=== PATIENT | female | born 1945 | race Caucasian/White ===

== ENCOUNTER → 2018-08-17 09:57 | Outpatient (CLI) | payer MEDICARE, OTHER, SELFPAY ==
--- NOTE | 2018-08-17 | DI.CT.S_ITS ---
PROCEDURE: CT CHEST W CON INDICATIONS: Dyspnea, unspecified TECHNIQUE: After the administration of intravenous contrast, 5 mm thick sections acquired from the pulmonary apices to the posterior costophrenic angles. 7 mm thick coronal and sagittal MIP reformats were acquired. For radiation dose reduction, the following was used: automated exposure control, adjustment of mA and/or kV according to patient size. COMPARISON: [facility], CR, XR CHEST 2 VIEWS, 08/12/2018, 17:07. FINDINGS: Image quality: Excellent. Lungs and pleura: A large medial right lower lung mass is not present and the area of prior plain film concern represents dilatation of the pulmonary vein in that area. This is associated with mild generalized pulmonary edema and bilateral small pleural effusions that are water density and are slightly larger on the right than the left. There is a finding of several areas of patchy atelectasis, no definite pneumonia, and at the right lung base there is a lateral vaguely marginated 6 mm focus of subtle solid radiodensity. This is seen centered on series 3 image 34. No pneumothorax. Central and peripheral airways are patent and normal in caliber. Mediastinum: Left atrium size is mildly enlarged. No pericardial effusion. No mediastinal or hilar adenopathy by size criteria. Thoracic aorta and central pulmonary arteries are normal in size. Esophagus is normal in caliber. No hiatal hernia. Bones and chest wall: No suspicious bony lesions. No vertebral body compression fractures. No axillary or supraclavicular adenopathy by size criteria. Thyroid gland contains a large hypoenhancing mass measuring up to 2.7 cm oblique AP and 2 cm oblique transverse. Abdomen: Visualized upper abdominal solid organs appear normal. Upper abdominal bowel loops are normal in caliber. IMPRESSION: 1. The masslike structure seen by plain film imaging 08/12/18 represents dilatation of the inferior pulmonary vein on the right, and the left atrium is relatively large. Echocardiography may be warranted for more accurate assessment. 2. Generalized mild pulmonary edema pattern. Small bilateral pleural effusions appear simple in character, water in density, and do not appear loculated. These are slightly greater on the right than the left. 3. A 6 mm solid focus of radiodensity is seen at the lateral right lower lung, which may represent focal pulmonary consolidation developing in this area. A sub-solid nodule may explain that appearance. Followup noncontrast CT scanning in 6 months is recommended to ensure resolution of that finding. Dictated by: Taye Overton M.D. on 08/17/2018 at 10:54 Approved by: Taye Overton M.D. on 08/17/2018 at 11:01
== END ==
PROVIDERS: PCP Naturopath; Visit Provider Nurse Practitioner Family
DX: R06.00 Dyspnea, unspecified (principal); I28.8 Other diseases of pulmonary vessels; J81.1 Chronic pulmonary edema; J90 Pleural effusion, not elsewhere classified; E07.9 Disorder of thyroid, unspecified
CPT/HCPCS: 71260

== ENCOUNTER → 2018-09-26 08:24 | Outpatient (CLI) | payer MEDICARE, OTHER, SELFPAY ==
[2018-09-26 09:40] LABS: BUN Creatinine Ratio 18.9 (6-22); Blood Urea Nitrogen 17 mg/dL (7-17); Calcium 9.8 mg/dL (8.4-10.2); Carbon Dioxide 25 mmol/L (22-32); Chloride 102 mmol/L (98-107); Estimated Glomerular Filt Rate > 60.0 mL/min (>60); Glucose 99 mg/dL (80-110); HEMOLYSIS < 15 (0-50); Potassium 4.5 mmol/L (3.4-5.1); Sodium 137 mmol/L (137-145)
== END ==
PROVIDERS: Family Provider Nurse Practitioner Family; PCP Naturopath; Visit Provider Internal Medicine Cardiovascular Disease
DX: I50.1 Left ventricular failure, unspecified (principal)
CPT/HCPCS: 36415; 80048

== ENCOUNTER → 2018-10-14 08:13 | Outpatient (CLI) | payer MEDICARE, OTHER, SELFPAY ==
[2018-10-14 08:54] LABS: Specimen Label KIT TEST VIBRANT
== END ==
PROVIDERS: Family Provider Nurse Practitioner Family; PCP Naturopath
DX: I50.9 Heart failure, unspecified (principal); E78.5 Hyperlipidemia, unspecified
CPT/HCPCS: 36415; 99001

== ENCOUNTER → 2019-04-26 14:52 | Outpatient (CLI) | payer MEDICARE, OTHER, SELFPAY ==
--- NOTE | 2019-05-27 10:00 | DI.ECHO.S_ITS ---
Echocardiogram Report + + :Name: DARY WILLOUGHBY Study Date: 04/26/2019 Height: 66 in : :[facility] Weight: 144 lb : : Gender: Female BSA: 1.7 m2 : :: 1945 Age: 74 yrs BP: 132/75 mmHg: :Reason For Study: DILATED CM : : Performed By: Robert Weber : :Referring: JASMIN SERRATO : + + Interpretation Summary The left ventricle is moderately dilated and systolic function is moderate to severely reduced with the ejection fraction visually estimated to be 30-35%. There is a mild dyssynchronous contraction pattern, consistent with a conduction abnormality, and moderate to severe global hypokinesis that appears worse in the septum but is unchanged compared to the previous study. Diastolic parameters suggest a pseudonormalization pattern, consistent with probable elevated filling pressures but likely lower compared to the previous study. Otherwise, there has been no significant change from the previous exam. The right ventricle is normal in size and function and appears unchanged compared to the previous study. The right ventricular systolic pressure is estimated to be at least 31 mmHg based on an estimated right atrial pressure of 3 mm Hg, and is likely slightly lower compared to the previous study. The left atrium is severely dilated and is mildly larger compared to the previous study. The mitral valve leaflets are slightly calcified but otherwise appears normal with moderate to severe mitral regurgitation that appears slightly improved compared to the previous study. There is no other significant valvular heart disease. Procedure: A two-dimensional transthoracic echocardiogram with color flow and Doppler was performed. The study quality was technically good. Comparison is made with the echocardiogram of 3/15/19. The patient was in normal sinus rhythm during the exam. Left Ventricle: There is normal left ventricular wall thickness. The left ventricle is moderately dilated. Left ventricular systolic function is moderate to severely reduced. The ejection fraction is estimated to be 30-35%. There is a mild dyssynchronous contraction pattern, consistent with a conduction abnormality. There is moderate to severe global hypokinesis of the left ventricle. This appears worse in the septum. This is unchanged compared to the previous study. Diastolic parameters suggest a pseudonormalization pattern, consistent with probable elevated filling pressures. This is likely lower compared to the previous study. Right Ventricle: The right ventricle is normal in size and function. This is unchanged compared to the previous study. Atria: The left atrium is severely dilated. This is mildly larger compared to the previous study. Right atrial size is normal. The interatrial septum is intact with no evidence for an atrial septal defect. Mitral Valve: The mitral valve leaflets are slightly calcified. There is moderate to severe mitral regurgitation. This is slightly improved compared to the previous study. Aortic Valve: The aortic valve is trileaflet. The aortic valve opens well. No aortic regurgitation is present. Tricuspid Valve: The tricuspid valve is normal in structure and function. There is trace tricuspid regurgitation. The right ventricular systolic pressure is estimated to be at least 31 mmHg based on an estimated right atrial pressure of 3 mm Hg. This is likely slightly lower compared to the previous study. Pulmonic Valve: The pulmonic valve is normal in structure and function. There is trace pulmonic regurgitation. There is no other significant valvular heart disease. Great Vessels: The aortic root is normal size. The dimensions of the ascending aorta are normal. The pulmonary artery is normal size. The IVC is of normal diameter and collapses greater than 50% with a sniff. This suggests a low right atrial pressure of 3 mm Hg. Pericardium/ Pleura There is no pericardial effusion. There is no pleural effusion. MMode/2D Measurements & Calculations LVIDd: 6.4 cm LVOT diam: 2.0 cm LVIDs: 5.1 cm Ao root diam: 2.7 cm FS: 20.1 % Aortic Jxn: 2.4 cm EPSS: 2.0 cm asc Aorta Diam: 3.2 cm IVSd: 1.0 cm Ao Arch Diam (Prox Trans): 2.5 cm LVPWd: 0.95 cm LV pineda. diameter/BSA (cm/m^2): 3.7 LV sys. diameter/BSA (cm/m^2): 3.0 LA dimension: 4.3 cm RA long axis: 4.4 cm LA A2 area: 30.5 cm2 RA area: 15.2 cm2 LA A4 area: 27.0 cm2 RA vol: 45.1 ml LA length (vol): 5.8 cm RA : 25.9 ml/m2 LA vol: 119.8 ml IVC diam: 0.91 cm LA vol index: 68.9 ml/m2 TAPSE: 2.0 cm Doppler Measurements & Calculations Ao V2 max: 135.1 cm/sec LVOT Max Felice: 102.1 cm/sec Ao V2 mean: 96.1 cm/sec LV V1 max P.2 mmHg Ao max P.3 mmHg LV V1 VTI: 20.6 cm Ao mean P.0 mmHg GEOFF(I,D): 2.4 cm2 Ao V2 VTI: 25.6 cm GEOFF(V,D): 2.3 cm2 sev ratio: 0.81 GEOFF indexed to BSA (cm^2/m^2): 1.4 MV E max felice: 81.3 cm/sec TR max felice: 264.3 cm/sec MV A max felice: 110.3 cm/sec TR max P.9 mmHg MV E/A: 0.74 PA V2 max: 84.8 cm/sec Med Peak E' Felice: 4.0 cm/sec PA V2 mean: 60.8 cm/sec E/E' med: 20.2 PA mean P.6 mmHg Lat Peak E' Felice: 6.7 cm/sec PA pr(Accel): 44.1 mmHg E/E' lat: 12.1 PA Accel Time: 0.07 sec E/e' average: 16.1 MV dec time: 0.15 sec SV(LVOT): 62.7 ml _ Reading Physician:SERA
== END ==
PROVIDERS: Family Provider Nurse Practitioner Family; PCP Naturopath; Visit Provider Internal Medicine Cardiovascular Disease
DX: I34.0 Nonrheumatic mitral (valve) insufficiency (principal); I42.0 Dilated cardiomyopathy
CPT/HCPCS: 93306

== ENCOUNTER → 2019-09-25 13:11 | Outpatient (CLI) | payer MEDICARE, OTHER, SELFPAY | PROVIDERS: Family Provider Nurse Practitioner Family; PCP Naturopath; Referring Provider Internal Medicine Cardiovascular Disease; Visit Provider Internal Medicine Cardiovascular Disease | DX: E78.5 Hyperlipidemia, unspecified (principal); I50.9 Heart failure, unspecified | CPT/HCPCS: 36415; 99001 ==

== ENCOUNTER → 2020-04-17 10:58 | Outpatient (CLI) | payer MEDICARE, OTHER, SELFPAY | PROVIDERS: Family Provider Nurse Practitioner Family; PCP Naturopath; Referring Provider Internal Medicine Cardiovascular Disease; Visit Provider Internal Medicine Cardiovascular Disease | DX: I42.0 Dilated cardiomyopathy (principal) | CPT/HCPCS: 36415; 99001 ==

== ENCOUNTER → 2020-12-24 08:26 | Outpatient (CLI) | payer MEDICARE, OTHER, SELFPAY ==
[2020-12-24 09:40] LABS: Specimen Label KIT
== END ==
PROVIDERS: Family Provider Nurse Practitioner Family; PCP Naturopath; Referring Provider Internal Medicine Cardiovascular Disease; Visit Provider Internal Medicine Cardiovascular Disease
DX: I42.0 Dilated cardiomyopathy (principal); E55.9 Vitamin D deficiency, unspecified; E78.5 Hyperlipidemia, unspecified; R53.82 Chronic fatigue, unspecified
CPT/HCPCS: 36415; 99001

== ENCOUNTER → 2021-01-14 10:42 | Outpatient (CLI) | payer MEDICARE, OTHER, SELFPAY ==
[2021-01-14 11:28] LABS: Add Manual Diff / Slide Review NO; Basophils Absolute Auto 100 /uL (0-100); Eosinophils Absolute Auto 200 /uL (0-450); Eosinophils Percent Auto 3.3 % (2-4); Hematocrit 39.6 % (36-46); Hemoglobin 13.2 g/dL (12.0-16.0); Lymphocytes Absolute Auto 1400 /uL (1100-4500); Lymphocytes Percent Auto 21.5 % (25-40); Mean Corpuscular HGB Conc 33.2 % (30-36); Mean Corpuscular Hemoglobin 31.1 PG (26-34); Mean Corpuscular Volume 93.7 fL (80-100); Monocytes Absolute Auto 700 /uL (0-900); Monocytes Percent Auto 11.3 % (3-14); Neutrophils Absolute Auto 4100 /uL (1500-7000); Neutrophils Percent Auto 62.9 % (50-75); Platelet Count 269 X10^3/uL (150-400); Red Blood Cell Count 4.23 X10^6/uL (4.0-5.2); White Blood Cell Count 6.5 X10^3/uL (4.5-11.0)
== END ==
PROVIDERS: Family Provider Nurse Practitioner Family; PCP Naturopath; Referring Provider Internal Medicine Cardiovascular Disease; Visit Provider Internal Medicine Cardiovascular Disease
DX: I42.0 Dilated cardiomyopathy (principal)
CPT/HCPCS: 36415; 85025

== ENCOUNTER → 2021-12-15 07:51 | Outpatient (CLI) | payer MEDICARE, OTHER, SELFPAY ==
--- NOTE | 2021-12-15 | DI.ECHO.S_ITS ---
[facility]---------+ [facility] +---------+ : : [address] : : : : [id number] : : : : Phone: [phone]+ Echocardiogram Report + + :Name: DARY WILLOUGHBY Study Date: 12/15/2021 Height: 65.5 in: :[facility] ReadingLocation: Weight: 136 lb : : Gender: Female BSA: 1.7 m2 : :: 1945 Age: 76 yrs BP: 125/86 mmHg: :Reason For Study: DILATED CARDIOMYOPATHY : :Ordering Physician: AMA, : :JASMIN Performed By: Maria Diez : :Referring: JASMIN SERRATO : + + Interpretation Summary The ejection fraction is estimated to be 15-20%. There is severe global hypokinesis of the left ventricle. There is severe mitral regurgitation. There is mild tricuspid regurgitation. The right ventricular systolic pressure is estimated to be at least 37 mmHg based on an estimated right atrial pressure of 3 mm Hg. Procedure: A two-dimensional transthoracic echocardiogram with color flow and Doppler was performed. The study quality was technically adequate. Comparison is made with the echocardiogram of 01/21/2021. The patient was in sinus rhythm with heart rates between 64-80 bpm during the exam. Left Ventricle: The left ventricle is severely dilated. The estimated left ventricular end diastolic volume is 186 ml. There is normal left ventricular wall thickness. The ejection fraction is estimated to be 15-20%. There is severe global hypokinesis of the left ventricle. Right Ventricle: The right ventricle is normal in size and function. Atria: The left atrium is severely dilated. Right atrial size is normal. There is no Doppler evidence for an interatrial shunt. Mitral Valve: The mitral valve leaflets are slightly calcified. There is severe mitral regurgitation. Aortic Valve: The aortic valve is trileaflet. The aortic valve opens well. There is no aortic valve stenosis. No aortic regurgitation is present. Tricuspid Valve: The tricuspid valve is normal in structure and function. There is mild tricuspid regurgitation. The right ventricular systolic pressure is estimated to be at least 37 mmHg based on an estimated right atrial pressure of 3 mm Hg. Pulmonic Valve: The pulmonic valve is not well seen, but is grossly normal. There is trace pulmonic regurgitation. Great Vessels: The aortic root is normal size. The dimensions of the ascending aorta are normal. The IVC is of normal diameter and collapses greater than 50% with a sniff. This suggests a low right atrial pressure of 3 mm Hg. Pericardium/ Pleura There is no pericardial effusion. There is no pleural effusion. MMode/2D Measurements & Calculations LVIDd: 7.1 cm LVOT diam: 1.8 cm LVIDs: 6.3 cm Ao root diam: 2.7 cm FS: 11.2 % asc Aorta Diam: 3.1 cm EPSS: 2.3 cm Ao Arch Diam (Prox Trans): 2.3 cm IVSd: 0.84 cm LVPWd: 0.84 cm LV pineda. diameter/BSA (cm/m^2): 4.2 LV sys. diameter/BSA (cm/m^2): 3.7 LA A2 area: 33.5 cm2 RA long axis: 4.8 cm LA A4 area: 30.4 cm2 RA area: 16.0 cm2 LA length (vol): 7.0 cm RA vol: 45.3 ml LA vol: 123.8 ml RA : 26.8 ml/m2 LA vol index: 73.4 ml/m2 IVC diam: 1.7 cm RVD1 (basal): 3.0 cm RVD2 (mid): 2.7 cm TAPSE: 2.7 cm Doppler Measurements & Calculations Ao V2 max: 133.4 cm/sec LVOT Max Felice: 89.1 cm/sec Ao V2 mean: 92.7 cm/sec LV V1 max P.2 mmHg Ao max P.1 mmHg LV V1 VTI: 15.4 cm Ao mean P.9 mmHg GEOFF(I,D): 1.4 cm2 Ao V2 VTI: 26.8 cm GEOFF(V,D): 1.7 cm2 sev ratio: 0.57 GEOFF indexed to BSA (cm^2/m^2): 0.85 MV E max felice: 133.7 cm/sec TR max felice: 291.1 cm/sec MV A max felice: 121.6 cm/sec TR max P.0 mmHg MV E/A: 1.1 PA V2 max: 104.5 cm/sec Med Peak E' Felice: 5.9 cm/sec PA V2 mean: 74.7 cm/sec E/E' med: 22.8 PA mean P.4 mmHg Lat Peak E' Felice: 9.4 cm/sec PA pr(Accel): 39.6 mmHg E/E' lat: 14.2 E/e' average: 18.5 MV dec time: 0.17 sec MR ERO: 0.33 cm2 MR PISA: 4.5 cm2 SV(LVOT): 38.5 ml MR flow rate: 173.5 cm3/sec MR PISA radius: 0.85 cm Reading Physician:[id number] PM
== END ==
PROVIDERS: Family Provider Nurse Practitioner Family; PCP Nurse Practitioner Family; Referring Provider Internal Medicine Cardiovascular Disease; Visit Provider Internal Medicine Cardiovascular Disease
DX: I42.0 Dilated cardiomyopathy (principal); I08.1 Rheumatic disorders of both mitral and tricuspid valves
CPT/HCPCS: 93306

== ENCOUNTER 2022-05-21 07:28 | Emergency (ER) | payer MEDICARE, OTHER, SELFPAY ==
[2022-05-21] VITALS (14 sets, daily range): BP systolic 107–126; BP diastolic 72–76; PULSE 79–102; RESP 20–31; TEMP 36.9; O2SAT 90–96
--- NOTE | 2022-05-21 07:48 | DI.RAD.S_ITS ---
PROCEDURE: XR CHEST 1V INDICATIONS: Short of breath TECHNIQUE: One view of the chest was acquired. COMPARISON: [facility], CT, CT CHEST W CON, 08/17/2018, 10:05. [facility], CR, XR CHEST 2 VIEWS, 08/12/2018, 17:07. 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 Lungs and pleura: Small pleural effusions are seen. On this semiupright study, no large pneumothorax is seen. Mild interstitial prominence can be seen. Mediastinum: Mediastinal contours appear normal. Heart size is moderately enlarged. Bones and chest wall: No suspicious bony lesions. Age-appropriate bony degenerative changes are seen. There is a remote appearing fracture of the left humeral neck. Overlying soft tissues appear unremarkable. IMPRESSION: Cardiomegaly with interstitial prominence and pleural effusions. CHF is suspected. Postoperative and degenerative changes are seen. Dictated by: Jaya Trivedi M.D. on 05/21/2022 at 7:52 Approved by: Jaya Trivedi M.D. on 05/21/2022 at 7:53
--- NOTE | 2022-05-21 08:09 | ED_ITS ---
HPI - General Adult General Chief complaint: Shortness of Breath/Dyspnea Stated complaint: short of breath Time Seen by Provider: 05/21/22 07:47 Source: patient Mode of arrival: Ambulatory Limitations: no limitations History of Present Illness HPI narrative: Patient is a 77-year-old female. Takes no medications except for an occasional Claritin and some supplements. States she has been diagnosed with heart failure in the past after having a ?crisis ?but she states that past and she is not currently on any medications. She does see a tube pusher but this individual is located in [place]. She states that she started to have shortness of breath several months ago. It seemed to worsen approximately 3 weeks ago. She also states she is having problems sleeping at night. It is not because that she is short of breath just that she wakes up and can not go back to sleep. She states she has talking with someone about this. She states that her breathing today is not particularly worse than what it was a couple weeks ago which just that last evening she woke up and could not go back to sleep and so she sat up all night. She is not having any chest pain. No abdominal pain. No lower extremity swelli ng. She states she does not feel particularly anxious but just ?fatigued? because she is not had any sleep. Related Data Previous Rx's Medication Instructions Recorded furosemide 20 mg tablet (Lasix) 20 mg PO DAILY #30 tabs 05/21/22 Allergies Allergy/AdvReac Type Severity Reaction Status Date / Time No Known Drug Allergies Allergy Verified 05/21/22 08:35 Review of Systems Constitutional Constitutional: Reports system reviewed and no additional complaints, except as documented ENT Ears, Nose, Mouth, and Throat: Reports system reviewed and no additional complai nts, except as documented Cardiovascular Cardiovascular: Reports system reviewed and no additional complaints, except as documented Respiratory Respiratory: Reports system reviewed and no additional complaints, except as documented Gastrointestinal Gastrointestinal: Reports system reviewed and no additional complaints, except as documented Integumentary/Breasts Skin/Breast: Reports system reviewed and no additional complaints, except as documented Neurologic Neurologic: Reports system reviewed and no additional complaints, except as documented Hematologic/Lymphatic On Anticoagulants: No Patient History Medical History Congestive heart failure Social History lives independently: Yes Smoking Status: Never smoker Exam Initial Vital Signs Initial Vital Signs: Vital Signs Temperature 98.5 F 05/21/22 08:16 Pulse Rate 102 H 05/21/22 08:16 Respiratory Rate 22 05/21/22 08:16 Blood Pressure 126/76 05/21/22 08:16 Pulse Oximetry 96 05/21/22 08:16 Oxygen Delivery Method 05/21/22 08:16 Const General: cooperative and No ill appearing [facility] Head: normal to inspection and normocephalic Resp Effort & Inspection: no respiratory distress and tachypneic Auscultation: clear to auscultation bilaterally Cardio Rate: regular rate Rhythm: regular rhythm GI Inspection: normal to inspection Skin General: no rashes or lesions noted Neuro General: patient alert, patient awake and moves all extremities Extrem General: capillary refill normal Psych Appearance: grossly normal and well kempt Course Orders Ordered: ED Orders 05/21/22 07:48 XR chest 1V Stat EKG-12 Lead Stat 05/21/22 08:05 Complete Blood Count AUTO DIFF Stat Comprehensive Metabolic Panel Stat Lipase Stat NT-proBNP (BNP-Adult 18+) Stat Partial Thromboplastin Time Stat Prothrombin Time INR Stat Troponin & CK Cardiac Panel Stat 05/21/22 09:11 CT angio chest PE protocol Stat 05/21/22 10:30 MG [Magnesium] Stat Troponin & CK Cardiac Panel Stat 05/21/22 12:07 EC echo doppler complete Stat Discontinued Medications Aspirin (Aspirin 81 Mg Chew Tab) 324 mg PO NOW ONE Stop: 05/21/22 09:11 Last Admin: 05/21/22 09:27 Dose: 324 mg Documented By: DENA Furosemide (Furosemide 40 Mg/4 Ml Vial) 40 mg IV NOW ONE Stop: 05/21/22 09:11 Last Admin: 05/21/22 09:27 Dose: 40 mg Documented By: BT Lorazepam (Lorazepam 2 Mg/Ml Inj) 0.5 mg IV NOW ONE Stop: 05/21/22 08:10 Last Admin: 05/21/22 08:55 Dose: Not Given Documented By: BT Vital Signs Vital signs: Vital Signs - 8 hr 05/21/22 08:16 05/21/22 09:15 05/21/22 09:39 Temperature 98.5 F Pulse Rate 102 H 95 H 97 H Respiratory Rate 22 31 H Blood Pressure 126/76 Pulse Oximetry 96 90 L 94 Oxygen Delivery Method Room Air 05/21/22 10:03 05/21/22 10:30 05/21/22 11:00 Temperature Pulse Rate 99 H 96 H 96 H Respiratory Rate 20 22 Blood Pressure Pulse Oximetry 90 L 91 94 Oxygen Delivery Method 05/21/22 11:33 05/21/22 12:00 05/21/22 12:30 Temperature Pulse Rate 97 H 86 87 Respiratory Rate 24 22 24 Blood Pressure Pulse Oximetry 93 95 Oxygen Delivery Method 05/21/22 13:00 05/21/22 13:30 05/21/22 13:47 Temperature Pulse Rate 91 H 91 H Respiratory Rate 20 20 Blood Pressure 113/75 Pulse Oximetry 94 Oxygen Delivery Method 05/21/22 13:47 05/21/22 14:00 05/21/22 14:00 Temperature Pulse Rate 86 79 Respiratory Rate 22 24 Blood Pressure 107/72 Pulse Oximetry 95 95 Oxygen Delivery Method Medical Decision Making Lab Data Lab results reviewed: Yes I reviewed the patient's lab results. Result diagrams: 05/21/22 08:05 05/21/22 08:05 Labs: Lab Results 05/21/22 05/21/22 05/21/22 Range/Units 08:05 08:05 08:05 WBC 10.2 (4.5-11.0) X10^3/uL RBC 4.15 (4.0-5.2) X10^6/uL Hgb 12.7 (12.0-16.0) g/dL Hct 37.5 (36-46) % MCV 90.5 (80-100) fL MCH 30.6 (26-34) PG MCHC 33.8 (30-36) % RDW 15.0 H (11.6-14.8) % Plt Count 326 (150-400) X10^3/uL Neut % (Auto) 80.4 H (50-75) % Lymph % (Auto) 8.4 L (25-40) % Baldwin % (Auto) 9.1 (3-14) % Eos % (Auto) 1.2 L (2-4) % Baso % (Auto) 0.9 (0-2) % Neut # (Auto) 8200 H (3866-3419) /uL Lymph # (Auto) 900 L (6390-6500) /uL Baldwin # (Auto) 900 (0-900) /uL Eos # (Auto) 100 (0-450) /uL Baso # (Auto) 100 (0-100) /uL PT 13.7 H (10.1-12.7) SECONDS INR 1.2 (0.9-1.3) APTT 30 (26-36) SECONDS Sodium 138 (137-145) mmol/L Potassium 4.2 (3.4-5.1) mmol/L Chloride 106 (98-107) mmol/L Carbon Dioxide 20 L (22-32) mmol/L BUN 23 H (7-17) mg/dL Creatinine 0.88 (0.52-1.04) mg/dL Estimated GFR > 60 (>60) mL/min BUN/Creatinine Ratio 26.1 H (6-22) Glucose 146 H (80-110) mg/dL Calcium 9.5 (8.4-10.2) mg/dL Magnesium (1.6-2.3) mg/dL Total Bilirubin 0.8 (0.2-1.3) mg/dL AST 30 (14-36) IU/L ALT 43 H (<35) IU/L Alkaline Phosphatase 69 (38-126) U/L Total Creatine Kinase 108 (30-135) U/L CK-MB (CK-2) 1.89 (<2.37) ng/mL CK-MB (CK-2) Rel Index 1.8 (1.5-5.0) % Troponin I 0.038 H (0.01-0.034) ng/mL NT-Pro-B Natriuret Pep 4880 H (<450) pg/mL Total Protein 7.3 (6.3-8.2) g/dL Albumin 4.3 (3.5-5.0) g/dL Globulin 3.0 (1.7-4.1) g/dL Albumin/Globulin Ratio 1.4 (1.0-2.8) Lipase 63 (23-300) U/L 05/21/22 05/21/22 Range/Units 10:30 10:30 WBC (4.5-11.0) X10^3/uL RBC (4.0-5.2) X10^6/uL Hgb (12.0-16.0) g/dL Hct (36-46) % MCV (80-100) fL MCH (26-34) PG MCHC (30-36) % RDW (11.6-14.8) % Plt Count (150-400) X10^3/uL Neut % (Auto) (50-75) % Lymph % (Auto) (25-40) % Baldwin % (Auto) (3-14) % Eos % (Auto) (2-4) % Baso % (Auto) (0-2) % Neut # (Auto) (0398-6220) /uL Lymph # (Auto) (6284-7173) /uL Baldwin # (Auto) (0-900) /uL Eos # (Auto) (0-450) /uL Baso # (Auto) (0-100) /uL PT (10.1-12.7) SECONDS INR (0.9-1.3) APTT (26-36) SECONDS Sodium (137-145) mmol/L Potassium (3.4-5.1) mmol/L Chloride (98-107) mmol/L Carbon Dioxide (22-32) mmol/L BUN (7-17) mg/dL Creatinine (0.52-1.04) mg/dL Estimated GFR (>60) mL/min BUN/Creatinine Ratio (6-22) Glucose (80-110) mg/dL Calcium (8.4-10.2) mg/dL Magnesium 2.1 (1.6-2.3) mg/dL Total Bilirubin (0.2-1.3) mg/dL AST (14-36) IU/L ALT (<35) IU/L Alkaline Phosphatase (38-126) U/L Total Creatine Kinase 107 (30-135) U/L CK-MB (CK-2) 1.93 (<2.37) ng/mL CK-MB (CK-2) Rel Index 1.8 (1.5-5.0) % Troponin I 0.042 H (0.01-0.034) ng/mL NT-Pro-B Natriuret Pep (<450) pg/mL Total Protein (6.3-8.2) g/dL Albumin (3.5-5.0) g/dL Globulin (1.7-4.1) g/dL Albumin/Globulin Ratio (1.0-2.8) Lipase (23-300) U/L Imaging Data Chest x-ray: Radiologist's Impression: [address] [address] XRay Report Signed Patient: Dary Willoughby MR#: [id number] : 1945 Acct:[id number] Age/Sex: 77 / F Date of Service: 05/21/22 Loc: ED Accession Number: [id number] ?? Procedure: XR chest 1V Ordering Provider: Dandre Buchanan D.O. PROCEDURE:? XR CHEST 1V ? INDICATIONS:? Short of breath ? TECHNIQUE:? One view of the chest was acquired.? ? COMPARISON:? [facility], CT, CT CHEST W CON, 08/17/2018, 10:05.? [facility], CR, XR CHEST 2 VIEWS, 08/12/2018, 17:07. ? FINDINGS:? ? Surgical changes and devices:? Partial mastectomy change is seen. ? Lungs and pleura:? Small pleural effusions are seen.? On this semiupright study, no large pneumothorax is seen.? Mild interstitial prominence can be seen. ? Mediastinum:? Mediastinal contours appear normal.? Heart size is moderately enlarged.? ? Bones and chest wall:? No suspicious bony lesions.? Age-appropriate bony degenerative changes are seen.? There is a remote appearing fracture of the left humeral neck.? Overlying soft tissues appear unremarkable.? ? ? IMPRESSION:? Cardiomegaly with interstitial prominence and pleural effusions.? CHF is suspected. ? Postoperative and degenerative changes are seen.? ? ? Dictated by: Jaya Trivedi M.D. on 05/21/2022 at 7:52 ? ? Approved by: Jaya Trivedi M.D. on 05/21/2022 at 7:53 CT scan - chest: Radiologist's Impression: [address] [address] [address] Scan Report Signed Patient: Dary Willoughby MR#: [id number] : 1945 Acct:[id number] Age/Sex: 77 / F Date of Service: 05/21/22 Loc: ED Accession Number: [id number] ?? Procedure: CT angio chest PE protocol Ordering Provider: Dandre Buchanan D.O. PROCEDURE:? CT ANGIO CHEST PE PROTOCOL ? INDICATIONS:? Chest pain, shortness of breath, tachycardia ? TECHNIQUE:? After the administration of intravenous contrast, 2 mm thick sections acquired from the pulmonary apices to the posterior costophrenic angles.? 3-dimensional maximum intensity projection (MIP) coronal and sagittal reformats were then acquired through the thorax.? For radiation dose reduction, the following was used:? automated exposure control, adjustment of mA and/or kV according to patient size.? ? COMPARISON:? [facility], CT, CT CHEST W CON, 08/17/2018, 10:05.? [facility], CR, XR CHEST 1V, 05/21/2022, 7:56. ? FINDINGS:? Image quality:? Excellent.? ? Pulmonary arteries:? Pulmonary arteries are normal in size, and demonstrate no intraluminal filling defects to suggest central pulmonary embolism.? ? Lungs and pleura:? Small bilateral pleural effusions are seen, right larger than left.? Overlying dependent atelectasis is seen.? Mild ground-glass opacity can be seen.? No focal infiltrates are seen.? No pneumothorax is seen.? ? Mediastinum:? Heart size is moderately enlarged, without pericardial effusion.? No mediastinal or hilar adenopathy.? Thoracic aorta is normal in caliber and enhancement.? Esophagus is normal in caliber, without hiatal hernia.? ? Bones and chest wall:? No suspicious bony lesions.? Ribs and thoracic spine appear intact throughout.? Age-appropriate bony degenerative changes are seen.? Accentuated thoracic kyphosis is seen. ? Thyroid gland demonstrates a 2.2 cm lesion on the left posteriorly, as before.? No axillary or supraclavicular adenopathy.? Right partial mastectomy with right breast clips can be seen. ? Abdomen:? Visualized upper abdominal solid organs appear normal in the early arterial phase of enhancement.? IMPRESSION:? Negative for pulmonary embolism. ? Small bilateral pleural effusions are seen, right larger than left.? Associated overlying atelectasis can be seen. ? Cardiomegaly and interstitial prominence can be seen.? Please consider CHF. ? ? Incidental note is made of: Stable left thyroid lesion ? Dictated by: Jaya Trivedi M.D. on 05/21/2022 at 9:00 ? ? Approved by: Jaya Trivedi M.D. on 05/21/2022 at 9:02?? echo: Radiologist's Impression: Close Echocardiogram Ultrasound (Signed) Freda Hinkle - 05/21/22 Launch?Image [address] [address] Echocardiography Report Signed Patient: Dary Willoughby MR#: [id number] : 1945 Acct:[id number] Age/Sex: 77 / F Date of Service: 05/21/22 Loc: ED Accession Number: [id number] ?? Procedure: EC echo doppler complete Ordering Provider: Dandre Buchanan D.O. ? [facility]? +---------+ : ? :? [address] ? : ? : : ? :? [place], [place] ? : ? : : ? :? [address] ? : ? : : ? : ? Phone: [phone] : ? : [phone]? [phone]? +---------+ ? Echocardiogram Report + + :Name: DARY WILLOUGHBY? Study Date: 05/21/2022 ? Height: 65.5 in: :[facility] ? ? ReadingLocation: ? Weight: 136 lb : : ? Gender: Female ? BSA: 1.7 m2? ? : :: 1945? Age: 77 yrs? BP: 126/76 mmHg: :Reason For Study: CONGESTIVE HEART FAILURE ? : :Ordering Physician: SHANNON,? : :DANDRE? Performed By: Maria Diez? : :Referring: DANDRE BUCHANAN ? : + + Interpretation Summary 1) Severely dilated left ventricle with severely reduced systolic function (EF 15-20%). 2) Normal left ventricular size and function. 3) There is severe mitral regurgitation. 4) The right ventricular systolic pressure is estimated to be at least 51 mmHg based on an estimated right atrial pressure of 3 mm Hg. 5) There is a trivial pericardial effusion noted. 6) There is a small left-sided pleural effusion. 7) Compared to the Echo done 12/15/2021, systolic pulmonary artery pressure is higher on this study and small left sided pleural effusion is also present on ths study. ? Procedure: ? A two-dimensional transthoracic echocardiogram with color flow and Doppler was performed. The study quality was technically good. Comparison is made with the echocardiogram of 12/15/2021. The patient was in sinus rhythm with heart rates between 85-95 bpm during the exam. Left Ventricle: ? The left ventricle is severely dilated. The estimated left ventricular end diastolic volume is 200 ml. Trabeculae near apex are visualized. The ejection fraction is estimated to be 15-20%. There is severe global hypokinesis of the left ventricle. Right Ventricle: ? The right ventricle is normal in size and function. Atria: ? The left atrium is severely dilated. The right atrium is mildly dilated. There is no Doppler evidence for an interatrial shunt. Mitral Valve: ? The mitral valve leaflets are slightly calcified. The mitral valve leaflets are tented. There is severe mitral regurgitation. Aortic Valve: ? The aortic valve is trileaflet. The aortic valve opens well. There is no aortic valve stenosis. There is trace aortic regurgitation. Tricuspid Valve: ? The tricuspid valve leaflets are thin and pliable. There is mild tricuspid regurgitation. The right ventricular systolic pressure is estimated to be at least 51 mmHg based on an estimated right atrial pressure of 3 mm Hg. Pulmonic Valve: ? The pulmonic valve is not well seen, but is grossly normal. There is mild pulmonic regurgitation. Great Vessels: ? The aortic root is normal size. The dimensions of the ascending aorta are normal. The IVC is of normal diameter and collapses greater than 50% with a sniff. This suggests a low right atrial pressure of 3 mm Hg. Pericardium/ Pleura ? There is a trivial pericardial effusion noted. There is a small left-sided pleural effusion. ? MMode/2D Measurements & Calculations LVIDd: 7.1 cm? LVOT diam: 1.8 cm LVIDs: 6.4 cm? Ao root diam: 2.7 cm FS: 11.0 % ? asc Aorta Diam: 3.2 cm EPSS: 2.5 cm ? Ao Arch Diam (Prox Trans): 2.7 cm IVSd: 0.62 cm LVPWd: 0.61 cm LV pineda. diameter/BSA (cm/m^2): 4.2 LV sys. diameter/BSA (cm/m^2): 3.8 ? LA A2 area: 24.4 cm2 ? RA long axis: 4.9 cm LA A4 area: 27.8 cm2 ? RA area: 18.7 cm2 LA length (vol): 6.8 cm? RA vol: 61.1 ml LA vol: 85.1 ml? RA : 36.1 ml/m2 LA vol index: 50.4 ml/m2 ? IVC diam: 1.9 cm ? RVD1 (basal): 3.9 cm RVD2 (mid): 3.1 cm TAPSE: 2.2 cm ? Doppler Measurements & Calculations Ao V2 max: 125.5 cm/sec? LVOT Max Felice: 77.6 cm/sec Ao V2 mean: 87.8 cm/sec? LV V1 max P.4 mmHg Ao max P.3 mmHg? LV V1 VTI: 11.5 cm Ao mean P.6 mmHg ? GEOFF(I,D): 1.4 cm2 Ao V2 VTI: 20.3 cm ? GEOFF(V,D): 1.6 cm2 ? sev ratio: 0.56 ? GEOFF indexed to BSA (cm^2/m^2): 0.84 ? MV E max felice: 149.4 cm/sec ? ? ? TR max felice: 346.9 cm/sec MV A max felice: 127.0 cm/sec ? ? ? TR max P.1 mmHg MV E/A: 1.2? PA V2 max: 75.4 cm/sec Med Peak E' Felice: 4.3 cm/sec? ? ? PA V2 mean: 45.5 cm/sec E/E' med: 35.0 ? PA mean P.0 mmHg Lat Peak E' Felice: 4.5 cm/sec? ? ? PA pr(Accel): 43.0 mmHg E/E' lat: 32.9 E/e' average: 33.9 MV dec time: 0.14 sec MVA(VTI): 0.72 cm2 MR ERO: 0.27 cm2 ? MV V2 mean: 98.7 cm/sec? MR PISA: 3.7 cm2 MV mean P.6 mmHg ? MR flow rate: 130.3 cm3/sec MV V2 VTI: 40.1 cm ? MR PISA radius: 0.77 cm ? SV(LVOT): 28.7 ml ? Reading Physician:02:09 PM ECG Data Attestation: I personally reviewed and interpreted this ECG as follows: Interpretation: Sinus rhythm Left axis deviation Left bundle branch block Nonspecific ST T wave changes Ventricular rate 99 MDM Narrative Medical decision making narrative: Patient states she does feel better after the Lasix. She has diuresed quite a bit here in the ER. No chest pain. Left bundle-branch block on EKG. No prior to compare to. Troponins unchanged however elevated above the 99th percentile but not above the AMI cut off. Echocardiogram was obtained today. Discussed the case with Dr. Hinkle who read the echocardiogram compared to the prior 1 back in November. It is unchanged. Patient is not currently on any medications. Had a long discussion with the patient. She states that she is lived here in the local area for decades. She follows the tube pusher in [place] because she states that she like his ?holistic ?approach to medicines. She has been on car diac medications to include metoprolol and lisinopril in the past but she states her tube pusher took her off these medications. Dr. Corrales had recommended these medications. When I discuss this with the patient she states she would like to talk with her current tube pusher before starting any these. She is okay with starting with Lasix. Has no indication for any antibiotics. Patient was given return precautions. She expressed understanding and agreement. Discharge Plan Departure Patient Disposition: Home Clinical Impression: Congestive heart failure Instructions: DI for Heart Failure Activity Restrictions/Additional Instructions: A prescription for a medication called furosemide/Lasix was sent to [facility]. You can start taking it tomorrow as directed. I also recommend that you talk with your tube pusher about starting other cardiac medicines such as metoprolol/lisinopril/spironolactone. There is a very high chance that these medications can help with your heart failure and help prevent progression of this disease and further issues. I also recommend that you develop a relationship with a primary doctor locally. Return to the emergency department for any new or worsening symptoms. Prescriptions: New furosemide [Lasix] 20 mg tablet 20 mg PO DAILY Qty: 30 0RF Referrals: Jennifer Kam MD [Physician] - Shanel Springer ARNP [Primary Care Provider] -
[2022-05-21 08:26] LABS: Add Manual Diff / Slide Review NO; Basophils Absolute Auto 100 /uL (0-100); Basophils Percent Auto 0.9 % (0-2); Eosinophils Absolute Auto 100 /uL (0-450); Eosinophils Percent Auto 1.2 % (2-4); Hematocrit 37.5 % (36-46); Hemoglobin 12.7 g/dL (12.0-16.0); Lymphocytes Absolute Auto 900 /uL (1100-4500); Lymphocytes Percent Auto 8.4 % (25-40); Mean Corpuscular HGB Conc 33.8 % (30-36); Mean Corpuscular Hemoglobin 30.6 PG (26-34); Mean Corpuscular Volume 90.5 fL (80-100); Monocytes Absolute Auto 900 /uL (0-900); Monocytes Percent Auto 9.1 % (3-14); Neutrophils Absolute Auto 8200 /uL (1500-7000); Neutrophils Percent Auto 80.4 % (50-75); Platelet Count 326 X10^3/uL (150-400); Red Blood Cell Count 4.15 X10^6/uL (4.0-5.2); White Blood Cell Count 10.2 X10^3/uL (4.5-11.0)
--- NOTE | 2022-05-21 08:34 | PC.NURSE ---
pt states she notices its worse at night, even sitting up in a chair. its just worse at night.
[2022-05-21 08:45] LABS: Alanine Aminotransferase 43 IU/L (<35); Albumin 4.3 g/dL (3.5-5.0); Albumin Globulin Ratio 1.4 (1.0-2.8); Alkaline Phosphatase 69 U/L (38-126); Aspartate Aminotransferase 30 IU/L (14-36); BUN Creatinine Ratio 26.1 (6-22); Bilirubin Total 0.8 mg/dL (0.2-1.3); Blood Urea Nitrogen 23 mg/dL (7-17); Calcium 9.5 mg/dL (8.4-10.2); Carbon Dioxide 20 mmol/L (22-32); Chloride 106 mmol/L (98-107); Creatine Kinase 108 U/L (30-135); Estimated Glomerular Filt Rate > 60 mL/min (>60); Glucose 146 mg/dL (80-110); HEMOLYSIS < 15 (0-50); Lipase 63 U/L (23-300); Potassium 4.2 mmol/L (3.4-5.1); Sodium 138 mmol/L (137-145); Total Protein 7.3 g/dL (6.3-8.2)
[2022-05-21 08:57] LABS: NT-proBNP (BNP-Adult 18+) 4880 pg/mL (<450); Troponin I 0.038 ng/mL (0.01-0.034)
[2022-05-21 09:00] LABS: CKMB % Relative Index 1.8 % (1.5-5.0); Creatine Kinase MB 1.89 ng/mL (<2.37)
--- NOTE | 2022-05-21 09:11 | DI.CT.S_ITS ---
PROCEDURE: CT ANGIO CHEST PE PROTOCOL INDICATIONS: Chest pain, shortness of breath, tachycardia TECHNIQUE: After the administration of intravenous contrast, 2 mm thick sections acquired from the pulmonary apices to the posterior costophrenic angles. 3-dimensional maximum intensity projection (MIP) coronal and sagittal reformats were then acquired through the thorax. For radiation dose reduction, the following was used: automated exposure control, adjustment of mA and/or kV according to patient size. COMPARISON: [facility], CT, CT CHEST W CON, 08/17/2018, 10:05. [facility], CR, XR CHEST 1V, 05/21/2022, 7:56. FINDINGS: Image quality: Excellent. Pulmonary arteries: Pulmonary arteries are normal in size, and demonstrate no intraluminal filling defects to suggest central pulmonary embolism. Lungs and pleura: Small bilateral pleural effusions are seen, right larger than left. Overlying dependent atelectasis is seen. Mild ground-glass opacity can be seen. No focal infiltrates are seen. No pneumothorax is seen. Mediastinum: Heart size is moderately enlarged, without pericardial effusion. No mediastinal or hilar adenopathy. Thoracic aorta is normal in caliber and enhancement. Esophagus is normal in caliber, without hiatal hernia. Bones and chest wall: No suspicious bony lesions. Ribs and thoracic spine appear intact throughout. Age-appropriate bony degenerative changes are seen. Accentuated thoracic kyphosis is seen. Thyroid gland demonstrates a 2.2 cm lesion on the left posteriorly, as before. No axillary or supraclavicular adenopathy. Right partial mastectomy with right breast clips can be seen. Abdomen: Visualized upper abdominal solid organs appear normal in the early arterial phase of enhancement. IMPRESSION: Negative for pulmonary embolism. Small bilateral pleural effusions are seen, right larger than left. Associated overlying atelectasis can be seen. Cardiomegaly and interstitial prominence can be seen. Please consider CHF. Incidental note is made of: Stable left thyroid lesion Dictated by: aJya Trivedi M.D. on 05/21/2022 at 9:00 Approved by: Jaya Trivedi M.D. on 05/21/2022 at 9:02
[2022-05-21] MEDS: FUROSEMIDE 40 MG/4 ML VIAL IV (09:27)
[2022-05-21] MEDS: ASPIRIN 81 MG CHEW TAB 324 MG PO (09:27)
[2022-05-21 11:04] LABS: Creatine Kinase 107 U/L (30-135); Magnesium 2.1 mg/dL (1.6-2.3)
[2022-05-21 11:17] LABS: Troponin I 0.042 ng/mL (0.01-0.034)
[2022-05-21 11:19] LABS: CKMB % Relative Index 1.8 % (1.5-5.0); Creatine Kinase MB 1.93 ng/mL (<2.37)
[2022-05-21 11:59] LABS: INR 1.2 (0.9-1.3); Prothrombin Time 13.7 SECONDS (10.1-12.7)
[2022-05-21 12:02] LABS: PTT Partial Thromboplastin Tim 30 SECONDS (26-36)
--- NOTE | 2022-05-21 12:07 | DI.ECHO.S_ITS ---
[facility]---------+ [facility] +---------+ : : [address] : : : : [id number] : : : : Phone: [phone]+ Echocardiogram Report + + :Name: DARY WILLOUGHBY Study Date: 05/21/2022 Height: 65.5 in: :[facility] ReadingLocation: Weight: 136 lb : : Gender: Female BSA: 1.7 m2 : :: 1945 Age: 77 yrs BP: 126/76 mmHg: :Reason For Study: CONGESTIVE HEART FAILURE : :Ordering Physician: SHANNON, : :SHEA Performed By: Maria Diez : :Referring: SHEA ORTEGA : + + Interpretation Summary 1) Severely dilated left ventricle with severely reduced systolic function (EF 15-20%). 2) Normal left ventricular size and function. 3) There is severe mitral regurgitation. 4) The right ventricular systolic pressure is estimated to be at least 51 mmHg based on an estimated right atrial pressure of 3 mm Hg. 5) There is a trivial pericardial effusion noted. 6) There is a small left-sided pleural effusion. 7) Compared to the Echo done 12/15/2021, systolic pulmonary artery pressure is higher on this study and small left sided pleural effusion is also present on s study. Procedure: A two-dimensional transthoracic echocardiogram with color flow and Doppler was performed. The study quality was technically good. Comparison is made with the echocardiogram of 12/15/2021. The patient was in sinus rhythm with heart rates between 85-95 bpm during the exam. Left Ventricle: The left ventricle is severely dilated. The estimated left ventricular end diastolic volume is 200 ml. Trabeculae near apex are visualized. The ejection fraction is estimated to be 15-20%. There is severe global hypokinesis of the left ventricle. Right Ventricle: The right ventricle is normal in size and function. Atria: The left atrium is severely dilated. The right atrium is mildly dilated. There is no Doppler evidence for an interatrial shunt. Mitral Valve: The mitral valve leaflets are slightly calcified. The mitral valve leaflets are tented. There is severe mitral regurgitation. Aortic Valve: The aortic valve is trileaflet. The aortic valve opens well. There is no aortic valve stenosis. There is trace aortic regurgitation. Tricuspid Valve: The tricuspid valve leaflets are thin and pliable. There is mild tricuspid regurgitation. The right ventricular systolic pressure is estimated to be at least 51 mmHg based on an estimated right atrial pressure of 3 mm Hg. Pulmonic Valve: The pulmonic valve is not well seen, but is grossly normal. There is mild pulmonic regurgitation. Great Vessels: The aortic root is normal size. The dimensions of the ascending aorta are normal. The IVC is of normal diameter and collapses greater than 50% with a sniff. This suggests a low right atrial pressure of 3 mm Hg. Pericardium/ Pleura There is a trivial pericardial effusion noted. There is a small left-sided pleural effusion. MMode/2D Measurements & Calculations LVIDd: 7.1 cm LVOT diam: 1.8 cm LVIDs: 6.4 cm Ao root diam: 2.7 cm FS: 11.0 % asc Aorta Diam: 3.2 cm EPSS: 2.5 cm Ao Arch Diam (Prox Trans): 2.7 cm IVSd: 0.62 cm LVPWd: 0.61 cm LV pineda. diameter/BSA (cm/m^2): 4.2 LV sys. diameter/BSA (cm/m^2): 3.8 LA A2 area: 24.4 cm2 RA long axis: 4.9 cm LA A4 area: 27.8 cm2 RA area: 18.7 cm2 LA length (vol): 6.8 cm RA vol: 61.1 ml LA vol: 85.1 ml RA : 36.1 ml/m2 LA vol index: 50.4 ml/m2 IVC diam: 1.9 cm RVD1 (basal): 3.9 cm RVD2 (mid): 3.1 cm TAPSE: 2.2 cm Doppler Measurements & Calculations Ao V2 max: 125.5 cm/sec LVOT Max Felice: 77.6 cm/sec Ao V2 mean: 87.8 cm/sec LV V1 max P.4 mmHg Ao max P.3 mmHg LV V1 VTI: 11.5 cm Ao mean P.6 mmHg GEOFF(I,D): 1.4 cm2 Ao V2 VTI: 20.3 cm GEOFF(V,D): 1.6 cm2 sev ratio: 0.56 GEOFF indexed to BSA (cm^2/m^2): 0.84 MV E max felice: 149.4 cm/sec TR max felice: 346.9 cm/sec MV A max felice: 127.0 cm/sec TR max P.1 mmHg MV E/A: 1.2 PA V2 max: 75.4 cm/sec Med Peak E' Felice: 4.3 cm/sec PA V2 mean: 45.5 cm/sec E/E' med: 35.0 PA mean P.0 mmHg Lat Peak E' Felice: 4.5 cm/sec PA pr(Accel): 43.0 mmHg E/E' lat: 32.9 E/e' average: 33.9 MV dec time: 0.14 sec MVA(VTI): 0.72 cm2 MR ERO: 0.27 cm2 MV V2 mean: 98.7 cm/sec MR PISA: 3.7 cm2 MV mean P.6 mmHg MR flow rate: 130.3 cm3/sec MV V2 VTI: 40.1 cm MR PISA radius: 0.77 cm SV(LVOT): 28.7 ml Reading Physician:02:09 PM
== END 2022-05-21 14:59 | disposition home or self-care (01) ==
PROVIDERS: Emergency Provider Emergency Medicine; Family Provider Nurse Practitioner Family; PCP Nurse Practitioner Family
DX: I50.9 Heart failure, unspecified (principal); R07.9 Chest pain, unspecified; R00.0 Tachycardia, unspecified; R79.89 Other specified abnormal findings of blood chemistry
CPT/HCPCS: 36415; 71045; 71275; 80053; 82550; 82553; 83690; 83735; 83880; 84484; 85025; 85610; 85730; 93005; 93306; 96374; 99284; J1940; Q9967

== ENCOUNTER → 2022-06-01 11:13 | Outpatient (CLI) | payer MEDICARE, OTHER, SELFPAY ==
[2022-06-01 13:35] LABS: Alanine Aminotransferase 28 IU/L (<35); Albumin 4.4 g/dL (3.5-5.0); Albumin Globulin Ratio 1.6 (1.0-2.8); Alkaline Phosphatase 68 U/L (38-126); Aspartate Aminotransferase 25 IU/L (14-36); BUN Creatinine Ratio 25.5 (6-22); Bilirubin Total 0.8 mg/dL (0.2-1.3); Blood Urea Nitrogen 25 mg/dL (7-17); Calcium 9.1 mg/dL (8.4-10.2); Carbon Dioxide 25 mmol/L (22-32); Chloride 103 mmol/L (98-107); Estimated Glomerular Filt Rate 59 mL/min (>60); Globulin 2.8 g/dL (1.7-4.1); Glucose 109 mg/dL (80-110); HEMOLYSIS < 15 (0-50); Potassium 4.3 mmol/L (3.4-5.1); Sodium 138 mmol/L (137-145); Total Protein 7.2 g/dL (6.3-8.2)
[2022-06-01 13:42] LABS: NT-proBNP (BNP-Adult 18+) 1900 pg/mL (<450)
[2022-06-01 17:31] LABS: TSH w/ Reflex to FT4 2.02 uIU/mL (0.47-4.68)
== END ==
PROVIDERS: Family Provider Nurse Practitioner Family; PCP Family Medicine; Referring Provider Family Medicine; Visit Provider Family Medicine
DX: I50.9 Heart failure, unspecified (principal); E04.1 Nontoxic single thyroid nodule
CPT/HCPCS: 36415; 80053; 83880; 84443

== ENCOUNTER 2022-06-05 16:47 | Emergency (ER) | payer MEDICARE, OTHER, SELFPAY ==
[2022-06-05] VITALS (78 sets, daily range): BP systolic 77–155; BP diastolic 44–119; PULSE 54–162; RESP 16–42; TEMP 36.1; O2SAT 78–98; BMI 22.9
--- NOTE | 2022-06-05 16:59 | DI.RAD.S_ITS ---
PROCEDURE: XR CHEST 1V INDICATIONS: Shortness of breath TECHNIQUE: One view of the chest was acquired. COMPARISON: [facility], CR, XR CHEST 1V, 05/21/2022, 7:56. [facility], CT, CT ANGIO CHEST PE PROTOCOL, 05/21/2022, 9:18. FINDINGS: Surgical changes and devices: Right partial mastectomy and right breast clips can be seen. Lungs and pleura: There is a moderate right-sided pleural effusion and a small left-sided pleural effusion. No pneumothorax is seen. Mediastinum: Mediastinal contours appear normal. Heart size is moderately enlarged. Atherosclerotic calcification of the aortic arch is noted. Bones and chest wall: No suspicious bony lesions. Age-appropriate bony degenerative changes are seen. Mild levoconvex scoliotic curvature is noted. Overlying soft tissues appear unremarkable. IMPRESSION: Bilateral pleural effusions are again seen, right worse than left. There is moderate cardiomegaly. Postoperative and degenerative changes are seen. Dictated by: Jaya Trivedi M.D. on 06/05/2022 at 17:22 Approved by: Jaya Trivedi M.D. on 06/05/2022 at 17:23
--- NOTE | 2022-06-05 17:19 | ED_ITS ---
HPI - General Adult <Dandre Buchanan DO - Last Filed: 06/06/22 07:25> General Chief complaint: Shortness of Breath/Dyspnea Stated complaint: SOB Time Seen by Provider: 06/05/22 17:01 Source: patient Mode of arrival: Ambulatory History of Present Illness HPI narrative: Patient is a 77-year-old female who is here for evaluation of shortness of breath. I evaluated her here in the emergency department several weeks ago. Has kind of a complicated cardiac history. She lives here locally however she sees a welfare project manager in [place]. When I evaluated her couple weeks ago she was not on any medications. She states her welfare project manager took her off of her medicines. It was found on an echocardiogram at that time that her ejection fraction was low. We did start her on Lasix. She did not want to start any further medications and wanted to follow-up with the primary doctor. She has been taking her Lasix. Since that time she has followed up with a local primary doctor. It appears she is been doing well until recently where she is become more short of breath specifically on exertion. She denies any lower extremity swelling. No chest pain. No abdominal pain. Related Data Previous Rx's Medication Instructions Recorded furosemide 20 mg tablet (Lasix) 20 mg PO DAILY #30 tabs 05/21/22 apixaban 5 mg tablet (Eliquis) 5 mg PO BID #60 tabs 06/05/22 furosemide 20 mg tablet 20 mg PO DAILY #60 tabs 06/05/22 Allergies Allergy/AdvReac Type Severity Reaction Status Date / Time No Known Drug Allergies Allergy Verified 06/05/22 16:54 Review of Systems <Dandre Buchanan DO - Last Filed: 06/06/22 07:25> Review of Systems ROS Unobtainable: All systems reviewed & are unremarkable except as noted in HPI and below Patient History <Dandre Buchanan DO - Last Filed: 06/06/22 07:25> Medical History Congestive heart failure DCIS (ductal carcinoma in situ) (~1997) Left bundle branch block Macular degeneration Thyroid nodule Surgical History (Updated 05/31/22 @ 12:00 by Paula Key DO) H/O section Social History marital status: lives independently: Yes education level: college occupational status: other (Retired L&D RN) leisure activities: exercise Smoking Status: Never smoker alcohol intake: never Smoking Status: Never smoker alcohol intake frequency: 0-2 drinks per day Substance Use Type: does not use Exam <Dandre Buchanan DO - Last Filed: 06/06/22 07:25> Initial Vital Signs Initial Vital Signs: Vital Signs Temperature 97.0 F L 06/05/22 16:54 Pulse Rate 88 06/05/22 16:54 Respiratory Rate 17 06/05/22 16:54 Blood Pressure 139/76 06/05/22 16:54 Pulse Oximetry 98 06/05/22 16:54 Oxygen Delivery Method 06/05/22 16:54 Const General: cooperative, comfortable and No ill appearing HENMT Head: normal to inspection and normocephalic Mouth: oral mucosae normal Resp Effort & Inspection: no cough, not labored and tachypneic Auscultation: clear to auscultation bilaterally and rhonchi Cardio Rate: tachycardic Rhythm: regular rhythm GI Inspection: normal to inspection and non-distended Skin General: no rashes or lesions noted Neuro General: patient alert, patient awake, patient oriented x3 and moves all extremities Extrem General: No edema Psych Appearance: grossly normal <Mitch Lyon DO - Last Filed: 06/06/22 07:12> Initial Vital Signs Initial Vital Signs: Vital Signs Temperature 97.0 F L 06/05/22 16:54 Pulse Rate 88 06/05/22 16:54 Respiratory Rate 17 06/05/22 16:54 Blood Pressure 139/76 06/05/22 16:54 Pulse Oximetry 98 06/05/22 16:54 Oxygen Delivery Method 06/05/22 16:54 <Mitch Lyon DO - Last Filed: 06/06/22 07:12> Cardioversion Consent Signed: Yes Stability: Unstable Number of attempts (shocks): 1 Joules used: 120 Cardiac rhythm post-cardioversion: NSR Procedural Sedation Consent signed: Yes Time out performed: Yes Indication: cardioversion ASA Class: II Mallampati Airway Classification: Class II Preparation: alarm security or surveillance monitor applied and pulse oximeter IV Propofol dose (mg): 40 Intraservice time/total sedation time (min): 10 ED Sedation Level: Moderate (Concious) Patient Tolerated Procedure: Well Complications: none Course <Dandre Buchanan DO - Last Filed: 06/06/22 07:25> Orders Ordered: Discontinued Medications Enoxaparin Sodium (Enoxaparin 40 Mg/0.4 Ml Syringe) 40 mg SUBCUT NOW ONE Stop: 06/05/22 19:34 Last Admin: 06/05/22 20:11 Dose: 40 mg Documented By: SB Furosemide 60 mg/ Sodium (Chloride) 56 mls @ 112 mls/hr IV NOW ONE Stop: 06/05/22 17:29 Last Infusion: 06/05/22 18:40 Dose: 0 mls/hr Documented By: Admin: 06/05/22 17:45 Dose: 112 mls/hr Documented By: SB Propofol (Propofol 200 Mg/20 Ml Vial) 65 mg 1 mg/kg (65 mg) IV NOW ONE Stop: 06/05/22 19:03 Last Admin: 06/05/22 20:10 Dose: 40 mg Documented By: SB Vital Signs Vital signs: Vital Signs - 8 hr 06/05/22 16:54 06/05/22 17:13 06/05/22 17:20 Temperature 97.0 F L Pulse Rate 88 146 H 141 H Respiratory Rate 17 37 H 37 H Blood Pressure 139/76 Pulse Oximetry 98 96 96 Oxygen Delivery Method Room Air Room Air 06/05/22 17:23 06/05/22 17:23 06/05/22 17:30 Temperature Pulse Rate 139 H Respiratory Rate 32 H Blood Pressure 135/69 135/62 Pulse Oximetry 96 Oxygen Delivery Method 06/05/22 17:30 06/05/22 17:40 06/05/22 17:50 Temperature Pulse Rate 137 H 142 H 133 H Respiratory Rate 34 H 31 H Blood Pressure Pulse Oximetry 95 94 95 Oxygen Delivery Method 06/05/22 17:51 06/05/22 17:51 06/05/22 17:56 Temperature Pulse Rate 139 H Respiratory Rate Blood Pressure 90/52 L 99/65 Pulse Oximetry 95 Oxygen Delivery Method 06/05/22 17:56 06/05/22 18:00 06/05/22 18:00 Temperature Pulse Rate 138 H 141 H Respiratory Rate 26 H 27 H Blood Pressure 97/71 Pulse Oximetry 95 95 Oxygen Delivery Method 06/05/22 18:05 06/05/22 18:10 06/05/22 18:10 Temperature Pulse Rate 144 H 133 H Respiratory Rate 26 H 27 H Blood Pressure 111/77 Pulse Oximetry 95 94 Oxygen Delivery Method 06/05/22 18:15 06/05/22 18:23 06/05/22 18:25 Temperature Pulse Rate 138 H 162 H 141 H Respiratory Rate 37 H 36 H 23 Blood Pressure Pulse Oximetry 95 97 Oxygen Delivery Method 06/05/22 18:30 06/05/22 18:32 06/05/22 18:32 Temperature Pulse Rate 139 H 132 H Respiratory Rate 36 H 32 H Blood Pressure 77/49 L Pulse Oximetry 95 94 Oxygen Delivery Method 06/05/22 18:33 06/05/22 18:33 06/05/22 18:35 Temperature Pulse Rate 129 H 134 H Respiratory Rate 33 H 24 Blood Pressure 81/44 L Pulse Oximetry 94 95 Oxygen Delivery Method 06/05/22 18:36 06/05/22 18:36 06/05/22 18:40 Temperature Pulse Rate 133 H Respiratory Rate 22 Blood Pressure 135/59 L 100/63 Pulse Oximetry 95 Oxygen Delivery Method 06/05/22 18:40 06/05/22 18:45 06/05/22 18:45 Temperature Pulse Rate 128 H 128 H Respiratory Rate 17 16 Blood Pressure 108/56 L Pulse Oximetry 94 93 Oxygen Delivery Method 06/05/22 18:50 06/05/22 18:50 06/05/22 17:15 Temperature Pulse Rate 123 H 148 H Respiratory Rate 21 33 H Blood Pressure 115/65 Pulse Oximetry 91 96 Oxygen Delivery Method 06/05/22 17:25 06/05/22 17:35 06/05/22 17:45 Temperature Pulse Rate 133 H 152 H 137 H Respiratory Rate 29 H 29 H 35 H Blood Pressure Pulse Oximetry 96 96 96 Oxygen Delivery Method 06/05/22 17:55 Temperature Pulse Rate 141 H Respiratory Rate 26 H Blood Pressure Pulse Oximetry 95 Oxygen Delivery Method <Mitch Lyno DO - Last Filed: 06/06/22 07:12> Orders Ordered: Discontinued Medications Enoxaparin Sodium (Enoxaparin 40 Mg/0.4 Ml Syringe) 40 mg SUBCUT NOW ONE Stop: 06/05/22 19:34 Last Admin: 06/05/22 20:11 Dose: 40 mg Documented By: SB Furosemide 60 mg/ Sodium (Chloride) 56 mls @ 112 mls/hr IV NOW ONE Stop: 06/05/22 17:29 Last Infusion: 06/05/22 18:40 Dose: 0 mls/hr Documented By: Admin: 06/05/22 17:45 Dose: 112 mls/hr Documented By: WHIT Propofol (Propofol 200 Mg/20 Ml Vial) 65 mg 1 mg/kg (65 mg) IV NOW ONE Stop: 06/05/22 19:03 Last Admin: 06/05/22 20:10 Dose: 40 mg Documented By: WHIT Consultations Consultation #1: Discussed with on-call oil well services supervisor. We sure the opinion that the patient meets criteria for emergent cardioversion though slightly risk year than some she had a normal EKG 1 week ago without evidence of AFib and presents today with a rapid AFib, ST depressions on her EKG and blood pressures dipping into the 70s. He recommends cardioversion, anticoagulation and hopeful discharge with follow-up Vital Signs Vital signs: Vital Signs - 8 hr 06/05/22 16:54 06/05/22 17:13 06/05/22 17:20 Temperature 97.0 F L Pulse Rate 88 146 H 141 H Respiratory Rate 17 37 H 37 H Blood Pressure 139/76 Pulse Oximetry 98 96 96 Oxygen Delivery Method Room Air Room Air 06/05/22 17:23 06/05/22 17:23 06/05/22 17:30 Temperature Pulse Rate 139 H Respiratory Rate 32 H Blood Pressure 135/69 135/62 Pulse Oximetry 96 Oxygen Delivery Method 06/05/22 17:30 06/05/22 17:40 06/05/22 17:50 Temperature Pulse Rate 137 H 142 H 133 H Respiratory Rate 34 H 31 H Blood Pressure Pulse Oximetry 95 94 95 Oxygen Delivery Method 06/05/22 17:51 06/05/22 17:51 06/05/22 17:56 Temperature Pulse Rate 139 H Respiratory Rate Blood Pressure 90/52 L 99/65 Pulse Oximetry 95 Oxygen Delivery Method 06/05/22 17:56 06/05/22 18:00 06/05/22 18:00 Temperature Pulse Rate 138 H 141 H Respiratory Rate 26 H 27 H Blood Pressure 97/71 Pulse Oximetry 95 95 Oxygen Delivery Method 06/05/22 18:05 06/05/22 18:10 06/05/22 18:10 Temperature Pulse Rate 144 H 133 H Respiratory Rate 26 H 27 H Blood Pressure 111/77 Pulse Oximetry 95 94 Oxygen Delivery Method 06/05/22 18:15 06/05/22 18:23 06/05/22 18:25 Temperature Pulse Rate 138 H 162 H 141 H Respiratory Rate 37 H 36 H 23 Blood Pressure Pulse Oximetry 95 97 Oxygen Delivery Method 06/05/22 18:30 06/05/22 18:32 06/05/22 18:32 Temperature Pulse Rate 139 H 132 H Respiratory Rate 36 H 32 H Blood Pressure 77/49 L Pulse Oximetry 95 94 Oxygen Delivery Method 06/05/22 18:33 06/05/22 18:33 06/05/22 18:35 Temperature Pulse Rate 129 H 134 H Respiratory Rate 33 H 24 Blood Pressure 81/44 L Pulse Oximetry 94 95 Oxygen Delivery Method 06/05/22 18:36 06/05/22 18:36 06/05/22 18:40 Temperature Pulse Rate 133 H Respiratory Rate 22 Blood Pressure 135/59 L 100/63 Pulse Oximetry 95 Oxygen Delivery Method 06/05/22 18:40 06/05/22 18:45 06/05/22 18:45 Temperature Pulse Rate 128 H 128 H Respiratory Rate 17 16 Blood Pressure 108/56 L Pulse Oximetry 94 93 Oxygen Delivery Method 06/05/22 18:50 06/05/22 18:50 06/05/22 17:15 Temperature Pulse Rate 123 H 148 H Respiratory Rate 21 33 H Blood Pressure 115/65 Pulse Oximetry 91 96 Oxygen Delivery Method 06/05/22 17:25 06/05/22 17:35 06/05/22 17:45 Temperature Pulse Rate 133 H 152 H 137 H Respiratory Rate 29 H 29 H 35 H Blood Pressure Pulse Oximetry 96 96 96 Oxygen Delivery Method 06/05/22 17:55 Temperature Pulse Rate 141 H Respiratory Rate 26 H Blood Pressure Pulse Oximetry 95 Oxygen Delivery Method Medical Decision Making <Dandre Buchanan, DO - Last Filed: 06/06/22 07:25> Lab Data Result diagrams: 06/05/22 17:46 06/05/22 17:10 Labs: Lab Results 06/05/22 06/05/22 Range/Units 17:10 17:46 WBC 13.9 H (4.5-11.0) X10^3/uL RBC 4.08 (4.0-5.2) X10^6/uL Hgb 12.2 (12.0-16.0) g/dL Hct 37.3 (36-46) % MCV 91.3 (80-100) fL MCH 30.0 (26-34) PG MCHC 32.8 (30-36) % RDW 14.8 (11.6-14.8) % Plt Count 294 (150-400) X10^3/uL Neut % (Auto) 84.6 H (50-75) % Lymph % (Auto) 6.4 L (25-40) % [place] % (Auto) 7.4 (3-14) % Eos % (Auto) 0.8 L (2-4) % Baso % (Auto) 0.8 (0-2) % Neut # (Auto) 19606 H (1580-7971) /uL Lymph # (Auto) 900 L (4053-2955) /uL [place] # (Auto) 1000 H (0-900) /uL Eos # (Auto) 100 (0-450) /uL Baso # (Auto) 100 (0-100) /uL Sodium 136 L (137-145) mmol/L Potassium 4.3 (3.4-5.1) mmol/L Chloride 105 (98-107) mmol/L Carbon Dioxide 19 L (22-32) mmol/L BUN 22 H (7-17) mg/dL Creatinine 0.88 (0.52-1.04) mg/dL Estimated GFR > 60 (>60) mL/min BUN/Creatinine Ratio 25.0 H (6-22) Glucose 144 H (80-110) mg/dL Calcium 9.1 (8.4-10.2) mg/dL Total Bilirubin 0.6 (0.2-1.3) mg/dL AST 40 H (14-36) IU/L ALT 42 H (<35) IU/L Alkaline Phosphatase 82 (38-126) U/L Troponin I 0.028 (0.01-0.034) ng/mL NT-Pro-B Natriuret Pep 4710 H (<450) pg/mL Total Protein 7.4 (6.3-8.2) g/dL Albumin 4.4 (3.5-5.0) g/dL Globulin 3.0 (1.7-4.1) g/dL Albumin/Globulin Ratio 1.5 (1.0-2.8) Point of Care Testing Test Results Not applicable Point of care testing: Point of Care Testing Test Results Not applicable <Mitch Lyon, DO - Last Filed: 06/06/22 07:12> Lab Data Labs: Lab Results 06/05/22 06/05/22 Range/Units 17:10 17:46 WBC 13.9 H (4.5-11.0) X10^3/uL RBC 4.08 (4.0-5.2) X10^6/uL Hgb 12.2 (12.0-16.0) g/dL Hct 37.3 (36-46) % MCV 91.3 (80-100) fL MCH 30.0 (26-34) PG MCHC 32.8 (30-36) % RDW 14.8 (11.6-14.8) % Plt Count 294 (150-400) X10^3/uL Neut % (Auto) 84.6 H (50-75) % Lymph % (Auto) 6.4 L (25-40) % [place] % (Auto) 7.4 (3-14) % Eos % (Auto) 0.8 L (2-4) % Baso % (Auto) 0.8 (0-2) % Neut # (Auto) 55485 H (0800-4868) /uL Lymph # (Auto) 900 L (8267-2899) /uL [place] # (Auto) 1000 H (0-900) /uL Eos # (Auto) 100 (0-450) /uL Baso # (Auto) 100 (0-100) /uL Sodium 136 L (137-145) mmol/L Potassium 4.3 (3.4-5.1) mmol/L Chloride 105 (98-107) mmol/L Carbon Dioxide 19 L (22-32) mmol/L BUN 22 H (7-17) mg/dL Creatinine 0.88 (0.52-1.04) mg/dL Estimated GFR > 60 (>60) mL/min BUN/Creatinine Ratio 25.0 H (6-22) Glucose 144 H (80-110) mg/dL Calcium 9.1 (8.4-10.2) mg/dL Total Bilirubin 0.6 (0.2-1.3) mg/dL AST 40 H (14-36) IU/L ALT 42 H (<35) IU/L Alkaline Phosphatase 82 (38-126) U/L Troponin I 0.028 (0.01-0.034) ng/mL NT-Pro-B Natriuret Pep 4710 H (<450) pg/mL Total Protein 7.4 (6.3-8.2) g/dL Albumin 4.4 (3.5-5.0) g/dL Globulin 3.0 (1.7-4.1) g/dL Albumin/Globulin Ratio 1.5 (1.0-2.8) Point of Care Testing Test Results Not applicable Point of care testing: Point of Care Testing Test Results Not applicable MDM Narrative Medical decision making narrative: [1800] (Camron) Patient received in sign out from [Dewayne]. I have reviewed the clinical course and performed an independent history and physical exam. Patient becoming hypotensive with blood pressures dropping into the 70s and 80s. She states that she believes her heart rate is started jumping up for perhaps the past 2 days or so and historically is in the 80s or 90s. She reports no history of AFib and is not on any sort of anticoagulant Patient with known cardiomyopathy, CHF with recent echo demonstrating EF of 15% presents with what appears to be newly discovered atrial fibrillation and is quite symptomatic with SOB and hypotension. I have consulted with on-call Cardi ology we sure the opinion that she is appropriate for cardioversion. The procedure was quite successful when she returned to a normal sinus rhythm with normal blood pressures and improved work of breathing. She is started on anticoagulation and given contact information for local cardiology. Extensive return precautions discussed and questions answered to her apparent satisfaction Discharge Plan Departure Patient Disposition: Home Clinical Impression: Atrial fibrillation, CHF (congestive heart failure) Instructions: DI for Heart Failure, DI for Atrial Fibrillation Activity Restrictions/Additional Instructions: *You have been diagnosed with [newly discovered atrial fibrillation with c ongestive heart failure. We successfully cardioverted using propofol and electrocardioversion] *What to do: *Please continue to take your regular medications as directed. [ ] New medication prescriptions sent to your pharmacy: [ ] [x ] New medication written as a paper prescription [ ] No new medications given *Please follow up with your primary care provider in 2-3 days, call for an appointment. Let them know you were seen in the Emergency Department and that we ask that you be seen in follow up. We will electronically transmit a record of today's note if your PCP is in our system As discussed I have given you contact information for Cardiology *Return to Emergency Department if you should have any new, worsening or concerning symptoms, such as [fever greater than 101 F, shaking chills, worsening pain, persistent vomiting or other bothersome symptoms] Prescriptions: New Eliquis 5 mg tablet 5 mg PO BID Qty: 60 0RF furosemide 20 mg tablet 20 mg PO DAILY Qty: 60 0RF No Action furosemide [Lasix] 20 mg tablet 20 mg PO DAILY Qty: 30 0RF Referrals: Malik Sevilla MD [Physician] - Paula Key DO [Primary Care Provider] - Visit Report Forms: Patient Portal/API
[2022-06-05 17:45] LABS: Alanine Aminotransferase 42 IU/L (<35); Albumin 4.4 g/dL (3.5-5.0); Albumin Globulin Ratio 1.5 (1.0-2.8); Alkaline Phosphatase 82 U/L (38-126); Aspartate Aminotransferase 40 IU/L (14-36); Bilirubin Total 0.6 mg/dL (0.2-1.3); Blood Urea Nitrogen 22 mg/dL (7-17); Calcium 9.1 mg/dL (8.4-10.2); Carbon Dioxide 19 mmol/L (22-32); Chloride 105 mmol/L (98-107); Estimated Glomerular Filt Rate > 60 mL/min (>60); Glucose 144 mg/dL (80-110); HEMOLYSIS < 15 (0-50); Potassium 4.3 mmol/L (3.4-5.1); Sodium 136 mmol/L (137-145); Total Protein 7.4 g/dL (6.3-8.2)
[2022-06-05] MEDS: FUROSEMIDE 60 MG in SODIUM CHLORIDE 0.9% 50 ML 112 MG IV (17:45)
[2022-06-05 17:49] LABS: Add Manual Diff / Slide Review NO; Basophils Absolute Auto 100 /uL (0-100); Basophils Percent Auto 0.8 % (0-2); Eosinophils Absolute Auto 100 /uL (0-450); Eosinophils Percent Auto 0.8 % (2-4); Hematocrit 37.3 % (36-46); Hemoglobin 12.2 g/dL (12.0-16.0); Lymphocytes Absolute Auto 900 /uL (1100-4500); Lymphocytes Percent Auto 6.4 % (25-40); Mean Corpuscular HGB Conc 32.8 % (30-36); Mean Corpuscular Volume 91.3 fL (80-100); Monocytes Absolute Auto 1000 /uL (0-900); Monocytes Percent Auto 7.4 % (3-14); Neutrophils Absolute Auto 11700 /uL (1500-7000); Neutrophils Percent Auto 84.6 % (50-75); Platelet Count 294 X10^3/uL (150-400); Red Blood Cell Count 4.08 X10^6/uL (4.0-5.2); Red Cell Distribution Width 14.8 % (11.6-14.8); White Blood Cell Count 13.9 X10^3/uL (4.5-11.0)
[2022-06-05 17:57] LABS: NT-proBNP (BNP-Adult 18+) 4710 pg/mL (<450); Troponin I 0.028 ng/mL (0.01-0.034)
[2022-06-05] MEDS: propofoL 200 MG/20 ML VIAL 65 MG IV (20:10)
[2022-06-05] MEDS: ENOXAPARIN 40 MG/0.4 ML SYRINGE SUBCUT (20:11)
== END 2022-06-05 22:23 | disposition home or self-care (01) ==
PROVIDERS: Emergency Medicine; Emergency Provider Emergency Medicine; Family Provider Nurse Practitioner Family; PCP Family Medicine
DX: I48.91 Unspecified atrial fibrillation (principal); I50.9 Heart failure, unspecified
CPT/HCPCS: 36415; 71045; 80053; 83880; 84484; 85025; 92960; 93005; 93010; 96365; 96372; 99284; 99285; J1650; J1940; J2704

== ENCOUNTER → 2022-06-15 10:02 | Outpatient (CLI) | payer MEDICARE, OTHER, SELFPAY ==
[2022-06-15 10:57] LABS: BUN Creatinine Ratio 29.3 (6-22); Blood Urea Nitrogen 29 mg/dL (7-17); Calcium 8.7 mg/dL (8.4-10.2); Carbon Dioxide 24 mmol/L (22-32); Chloride 101 mmol/L (98-107); Estimated Glomerular Filt Rate 58 mL/min (>60); Glucose 136 mg/dL (80-110); HEMOLYSIS < 15 (0-50); Potassium 4.2 mmol/L (3.4-5.1); Sodium 135 mmol/L (137-145)
== END ==
PROVIDERS: Family Provider Nurse Practitioner Family; PCP Family Medicine; Referring Provider Family Medicine; Visit Provider Family Medicine
DX: I50.9 Heart failure, unspecified (principal)
CPT/HCPCS: 36415; 80048

== ENCOUNTER → 2022-07-23 10:57 | Outpatient (CLI) | payer MEDICARE, OTHER, SELFPAY ==
[2022-07-23 11:15] LABS: Add Manual Diff / Slide Review NO; Basophils Absolute Auto 100 /uL (0-100); Basophils Percent Auto 0.8 % (0-2); Eosinophils Absolute Auto 300 /uL (0-450); Eosinophils Percent Auto 2.2 % (2-4); Hematocrit 40.6 % (36-46); Hemoglobin 13.5 g/dL (12.0-16.0); Lymphocytes Absolute Auto 800 /uL (1100-4500); Mean Corpuscular HGB Conc 33.2 % (30-36); Mean Corpuscular Hemoglobin 29.6 PG (26-34); Mean Corpuscular Volume 89.3 fL (80-100); Monocytes Absolute Auto 1100 /uL (0-900); Monocytes Percent Auto 9.7 % (3-14); Neutrophils Absolute Auto 9300 /uL (1500-7000); Neutrophils Percent Auto 80.3 % (50-75); Platelet Count 391 X10^3/uL (150-400); Red Blood Cell Count 4.54 X10^6/uL (4.0-5.2); Red Cell Distribution Width 14.1 % (11.6-14.8); White Blood Cell Count 11.6 X10^3/uL (4.5-11.0)
== END ==
PROVIDERS: Family Provider Nurse Practitioner Family; PCP Family Medicine; Referring Provider Family Medicine; Visit Provider Family Medicine
DX: I48.0 Paroxysmal atrial fibrillation (principal)
CPT/HCPCS: 36415; 85025

== ENCOUNTER → 2022-09-23 09:24 | Outpatient (CLI) | payer MEDICARE, OTHER, SELFPAY ==
[2022-09-23 10:26] LABS: Add Manual Diff / Slide Review NO; Basophils Absolute Auto 100 /uL (0-100); Basophils Percent Auto 0.8 % (0-2); Eosinophils Absolute Auto 200 /uL (0-450); Eosinophils Percent Auto 2.6 % (2-4); Hematocrit 41.8 % (36-46); Hemoglobin 14.2 g/dL (12.0-16.0); Lymphocytes Absolute Auto 1500 /uL (1100-4500); Lymphocytes Percent Auto 20.5 % (25-40); Mean Corpuscular Hemoglobin 29.9 PG (26-34); Mean Corpuscular Volume 87.8 fL (80-100); Monocytes Absolute Auto 700 /uL (0-900); Monocytes Percent Auto 9.4 % (3-14); Neutrophils Absolute Auto 4800 /uL (1500-7000); Neutrophils Percent Auto 66.7 % (50-75); Platelet Count 278 X10^3/uL (150-400); Red Blood Cell Count 4.76 X10^6/uL (4.0-5.2); Red Cell Distribution Width 17.3 % (11.6-14.8); White Blood Cell Count 7.2 X10^3/uL (4.5-11.0)
[2022-09-23 11:06] LABS: BUN Creatinine Ratio 29.2 (6-22); Blood Urea Nitrogen 28 mg/dL (7-17); Calcium 9.4 mg/dL (8.4-10.2); Carbon Dioxide 28 mmol/L (22-32); Chloride 102 mmol/L (98-107); Estimated Glomerular Filt Rate > 60 mL/min (>60); Glucose 97 mg/dL (80-110); HEMOLYSIS < 15 (0-50); Potassium 4.4 mmol/L (3.4-5.1); Sodium 138 mmol/L (137-145)
== END ==
PROVIDERS: Family Provider Nurse Practitioner Family; PCP Family Medicine; Referring Provider Internal Medicine; Visit Provider Internal Medicine
DX: I50.20 Unspecified systolic (congestive) heart failure (principal)
CPT/HCPCS: 36415; 80048; 85025

== ENCOUNTER → 2022-11-27 09:22 | Outpatient (CLI) | payer MEDICARE, OTHER, SELFPAY ==
[2022-11-27 10:28] LABS: Add Manual Diff / Slide Review NO; Basophils Absolute Auto 100 /uL (0-100); Basophils Percent Auto 0.8 % (0-2); Eosinophils Absolute Auto 200 /uL (0-450); Eosinophils Percent Auto 2.5 % (2-4); Hematocrit 41.6 % (36-46); Hemoglobin 14.1 g/dL (12.0-16.0); Lymphocytes Absolute Auto 1100 /uL (1100-4500); Lymphocytes Percent Auto 13.5 % (25-40); Mean Corpuscular HGB Conc 33.8 % (30-36); Mean Corpuscular Hemoglobin 30.9 PG (26-34); Mean Corpuscular Volume 91.4 fL (80-100); Monocytes Absolute Auto 700 /uL (0-900); Monocytes Percent Auto 8.9 % (3-14); Neutrophils Absolute Auto 6100 /uL (1500-7000); Neutrophils Percent Auto 74.3 % (50-75); Platelet Count 412 X10^3/uL (150-400); Red Blood Cell Count 4.55 X10^6/uL (4.0-5.2); Red Cell Distribution Width 13.9 % (11.6-14.8); White Blood Cell Count 8.2 X10^3/uL (4.5-11.0)
[2022-11-27 10:47] LABS: BUN Creatinine Ratio 28.4 (6-22); Blood Urea Nitrogen 27 mg/dL (7-17); Calcium 9.7 mg/dL (8.4-10.2); Carbon Dioxide 27 mmol/L (22-32); Chloride 103 mmol/L (98-107); Estimated Glomerular Filt Rate > 60 mL/min (>60); Glucose 91 mg/dL (80-110); HEMOLYSIS 28 (0-50); Potassium 4.7 mmol/L (3.4-5.1); Sodium 139 mmol/L (137-145)
== END ==
PROVIDERS: PCP Family Medicine; Referring Provider Physician Assistant Medical; Visit Provider Physician Assistant Medical
DX: I42.8 Other cardiomyopathies (principal)
CPT/HCPCS: 36415; 80048; 85025

== ENCOUNTER → 2023-08-10 09:09 | Outpatient (CLI) | payer MEDICARE, OTHER, SELFPAY ==
--- NOTE | 2023-08-10 | DI.ECHO.S_ITS ---
Version: 1 Study ID: [id number] [place] [address] Name: DARY WILLOUGHBY Study Date: 08/10/2023, 9: 27 AM : 1945 BP: 126 / 76 mmHg Gender: Female Height: 65.6 in Age: 78 Years Weight: 142 lb BSA: 1.72 mA? Ordering: ARPAN FAULKNER Referring: ARPAN FAULKNER Clinician: Maria Diez Reason For Study: CARDIOMYOPATHIES History: Summary Statements Normal sinus rhythm. Mildly dilated LV and normal wall thickness; there is septal akinesis; otherwise minimally reduced wall motion. EF is estimated at 30-35%. Mild LA enlargement; otherwise normal chamber sizes. There is moderate eccentric posterolaterally directed mitral regurgitation in the setting of posterior leaflet tethering and calcified anterior leaflet, but without prolapse. There is a pacing lead traversing the tricuspid valve with mild associated central tricuspid regurgitation. Compared to prior study dated 10/20/2022, LV is much less dilated. End diastolic dimension fell from 7.2 cm to 6 cm. LV is more dynamic. EF is up from 20-25% to 30-35%. Procedure: A two-dimensional transthoracic echocardiogram with color flow and Doppler was performed. The study quality was technically adequate. There is no prior echocardiogram noted for this patient. The patient was in sinus rhythm with heart rates between 64-74 bpm during the exam. Left Ventricle: There is normal left ventricular wall thickness. The left ventricle is mildly dilated. The ejection fraction is estimated to be 30-35%. Right Ventricle: The right ventricle is normal in size and function. There is a pacemaker lead in the right ventricle. Atria: The left atrium is mildly dilated. Right atrial size is normal. There is no Doppler evidence for an interatrial shunt. Mitral Valve: The mitral valve leaflets are mildly calcified. The mitral valve leaflets are tented. There is moderate mitral regurgitation. Aortic Valve: The aortic valve is trileaflet. The aortic valve opens well. There is no aortic valve stenosis. No aortic regurgitation is present. Tricuspid Valve: The tricuspid valve leaflets are thin and pliable. There is mild tricuspid regurgitation. The right ventricular systolic pressure is estimated to be at least 19 mmHg based on an estimated right atrial pressure of 3 mm Hg. Pulmonic Valve: The pulmonic valve is not well visualized. There is trace pulmonic regurgitation. Great Vessels: The aortic root is normal size. The dimensions of the ascending aorta are normal. The inferior vena cava was not visualized. Pericardium/ Pleura: There is no pericardial effusion. There is no pleural effusion. 2D and M-Mode Measurements and Calculations LVIDd: 6.0 cm LVOT diam: 2.07 cm LVIDs: 5.1 cm Ao root diam: 2.7 cm IVSd: 0.77 cm asc Aorta Diam: 3.0 cm LVPWd: 0.81 cm LV pineda. diameter/BSA (cm/m^2): 3.5 LV sys. diameter/BSA (cm/m^2): 3.0 EPSS: 1.87 cm RVD1 (basal): 2.8 cm RVD2 (mid): 2.07 cm TAPSE: 1.69 cm LA A4 area: 15.0 control operator flow coat? RA area: 13.9 control operator flow coat? LA A2 area: 23.8 control operator flow coat? RA long axis: 4.7 cm LA length (vol): 4.6 cm RA vol: 35.4 ml LA vol: 66.1 ml RA : 20.5 ml/mA? LA vol index: 38.4 ml/mA? Doppler Measurements and Calculations Ao V2 max: 148.4 cm/sec LVOT Max Felice: 79.1 cm/sec Ao V2 mean: 105.9 cm/sec LV V1 max P.5 mmHg Ao V2 VTI: 31.3 cm LV V1 VTI: 16.1 cm Ao max P.8 mmHg SV(LVOT): 54.6 ml Ao mean P.9 mmHg GEOFF(I,D): 1.74 control operator flow coat? GEOFF(V,D): 1.80 control operator flow coat? GEOFF indexed to BSA (cm^2/m^2): 1.01 sev ratio: 0.52 MV E max felice: 70.4 cm/sec MV dec time: 0.18 sec MV A max felice: 104.5 cm/sec MV E/A: 0.67 Med Peak E' Felice: 3.5 cm/sec Lat Peak E' Felice: 8.1 cm/sec E/e' average: 14.5 TR max felice: 198.0 cm/sec PA mean P.60 mmHg TR max P.7 mmHg PA V2 max: 84.6 cm/sec MR ERO: 0.08 control operator flow coat? MR PISA: 1.28 control operator flow coat? Electronically signed by: Arpan Faulkner M.D. 08/11/2023, 9: 48 AM
== END ==
LOC: ECHO 09:09
PROVIDERS: PCP Family Medicine; Referring Provider Internal Medicine; Visit Provider Internal Medicine
DX: I42.8 Other cardiomyopathies (principal); I08.1 Rheumatic disorders of both mitral and tricuspid valves; Z95.0 Presence of cardiac pacemaker
CPT/HCPCS: 93306

== ENCOUNTER → 2023-08-30 12:46 | Outpatient (CLI) | payer MEDICARE, OTHER, SELFPAY ==
[2023-08-30 14:08] LABS: BUN Creatinine Ratio 27.5 (6-22); Blood Urea Nitrogen 28 mg/dL (7-17); Calcium 9.1 mg/dL (8.4-10.2); Carbon Dioxide 29 mmol/L (22-32); Chloride 106 mmol/L (98-107); Estimated Glomerular Filt Rate 56 mL/min (>60); Glucose 111 mg/dL (80-110); HEMOLYSIS < 15 (0-50); Potassium 3.7 mmol/L (3.4-5.1); Sodium 140 mmol/L (137-145)
== END ==
LOC: LAB 12:47
PROVIDERS: PCP Family Medicine; Referring Provider Internal Medicine; Visit Provider Internal Medicine
DX: I42.8 Other cardiomyopathies (principal)
CPT/HCPCS: 36415; 80048

== ENCOUNTER → 2024-02-18 12:22 | Outpatient (CLI) | payer MEDICARE, OTHER, SELFPAY ==
[2024-02-18 13:15] LABS: Blood Urea Nitrogen 31 mg/dL (7-17); Calcium 9.9 mg/dL (8.4-10.2); Carbon Dioxide 24 mmol/L (22-32); Chloride 105 mmol/L (98-107); Estimated Glomerular Filt Rate 57 mL/min (>60); Glucose 106 mg/dL (80-110); HEMOLYSIS < 15 (0-50); Potassium 4.8 mmol/L (3.4-5.1); Sodium 138 mmol/L (137-145)
== END ==
LOC: LAB 12:24
PROVIDERS: PCP Family Medicine; Referring Provider Internal Medicine; Visit Provider Internal Medicine
DX: I42.8 Other cardiomyopathies (principal)
CPT/HCPCS: 36415; 80048

== ENCOUNTER → 2024-02-21 12:32 | Outpatient (CLI) | payer MEDICARE, OTHER, SELFPAY ==
--- NOTE | 2024-02-21 12:37 | DI.RAD.S_ITS ---
PROCEDURE: XR CHEST 2V INDICATIONS: A TECHNIQUE: 2 views of the chest were acquired. COMPARISON: [facility], CR, XR CHEST 1V, 06/05/2022, 17:11. [facility], CR, XR CHEST 1V, 05/21/2022, 7:56. FINDINGS: Surgical changes and devices: Left pacemaker/AICD with right atrial and coronary sinus leads and right ventricular AICD lead. Right breast clips. Lungs and pleura: Lungs are clear. No pleural effusions or pneumothorax. Mediastinum: Mediastinal contours are normal. Heart size is normal. Bones and chest wall: No suspicious bony abnormalities. Soft tissues appear unremarkable. IMPRESSION: No acute cardiopulmonary abnormality is seen. Dictated by: Karl Georges M.D. on 02/21/2024 at 14:08 Approved by: Karl Georges M.D. on 02/21/2024 at 14:10
== END ==
PROVIDERS: PCP Family Medicine; Referring Provider Internal Medicine; Visit Provider Internal Medicine
DX: I42.8 Other cardiomyopathies (principal)
CPT/HCPCS: 71046

== ENCOUNTER → 2024-09-06 15:45 | Outpatient (CLI) | payer MEDICARE, OTHER, SELFPAY ==
[2024-09-06 16:01] LABS: Hematocrit 40.9 % (36-46); Hemoglobin 13.8 g/dL (12.0-16.0); Mean Corpuscular HGB Conc 33.8 % (30-36); Mean Corpuscular Hemoglobin 31.3 PG (26-34); Mean Corpuscular Volume 92.6 fL (80-100); Platelet Count 308 X10^3/uL (150-400); Red Blood Cell Count 4.42 X10^6/uL (4.0-5.2); Red Cell Distribution Width 13.7 % (11.6-14.8); White Blood Cell Count 9.7 X10^3/uL (4.5-11.0)
[2024-09-06 16:19] LABS: Alanine Aminotransferase 25 IU/L (<35); Albumin 4.7 g/dL (3.5-5.0); Albumin Globulin Ratio 1.7 (1.0-2.8); Alkaline Phosphatase 70 U/L (38-126); Aspartate Aminotransferase 32 IU/L (14-36); BUN Creatinine Ratio 23.8 (6-22); Bilirubin Total 0.3 mg/dL (0.2-1.3); Blood Urea Nitrogen 29 mg/dL (7-17); Carbon Dioxide 24 mmol/L (22-32); Chloride 104 mmol/L (98-107); Estimated Glomerular Filt Rate 45 mL/min (>60); Globulin 2.8 g/dL (1.7-4.1); Glucose 114 mg/dL (80-110); HEMOLYSIS < 15 (0-50); Potassium 4.4 mmol/L (3.4-5.1); Sodium 138 mmol/L (137-145); Total Protein 7.5 g/dL (6.3-8.2)
== END ==
PROVIDERS: PCP Family Medicine; Referring Provider Internal Medicine; Visit Provider Internal Medicine
DX: I42.8 Other cardiomyopathies (principal)
CPT/HCPCS: 36415; 80053; 85027

== ENCOUNTER → 2024-10-04 10:20 | Outpatient (CLI) | payer MEDICARE, OTHER, SELFPAY ==
--- NOTE | 2024-10-04 10:27 | DI.RAD.S_ITS ---
PROCEDURE: XR CHEST 2V INDICATIONS: CHRONIC COUGH TECHNIQUE: 2 views of the chest were acquired. COMPARISON: [facility], CR, XR CHEST 2V, 02/21/2024, 12:38. FINDINGS: Heart, mediastinum and pulmonary vascular: Heart is normal in size and configuration. AICD device is in proper position no complication Mediastinum is unremarkable. Pulmonary vascular is normal. Lungs: Lung volumes are mildly elevated with mild wall thickening of the central bronchi suggesting bronchitis Pleural spaces: Normal-no effusions or pneumothorax. Bones and soft tissues: Surgical clips in the right breast noted IMPRESSION: Bronchitis Dictated by: Gerson Salgado M.D. on 10/05/2024 at 12:16 Approved by: Gerson Salagdo M.D. on 10/05/2024 at 12:17
== END ==
PROVIDERS: PCP Family Medicine; Referring Provider Family Medicine; Visit Provider Family Medicine
DX: J40 Bronchitis, not specified as acute or chronic (principal); Z95.810 Presence of automatic (implantable) cardiac defibrillator
CPT/HCPCS: 71046

== ENCOUNTER → 2025-03-28 11:12 | Outpatient (CLI) | payer MEDICARE, OTHER, SELFPAY | PROVIDERS: PCP Family Medicine; Referring Provider Family Medicine; Visit Provider Family Medicine | DX: R05.3 Chronic cough (principal); R94.2 Abnormal results of pulmonary function studies | CPT/HCPCS: 94010; 94726; 94729 ==